=== PATIENT | male | born 1965 ===

== ENCOUNTER 2016-05-23 15:12 | Emergency (ER) | payer OTHER ==
[2016-05-23 15:41] LABS: BASOPHIL# 0.1 X 10^3uL (0.0-0.1); BASOPHILS 0.7 % (0.0-2.0); EOSINOPHILS 0.5 % (0.0-6.0); EOSINOPHILS# 0.1 X 10^3uL (0.0-0.4); LYMPHOCYTES 32.9 % (20.0-40.0); LYMPHOCYTES# 3.4 X 10^3uL (0.8-3.8); MEAN CORPUS. HGB CONCENTRATION 35.8 g/dL (32.0-36.0); MEAN CORPUSCULAR HEMOGLOBIN 30.8 pg (29.0-35.0); MEAN PLATELET VOLUME 6.5 fL (7.4-10.4); MONOCYTES 7.4 % (2.0-10.0); MONOCYTES# 0.8 X 10^3uL (0.2-1.0); NEUTROPHILS 58.5 % (54.0-75.0); PLATELET COUNT 303 X 10^3uL (130-440); RED BLOOD COUNT 5.38 X 10^6uL (4.20-6.10); RED CELL DISTRIBUTION WIDTH 12.6 % (11.5-14.5); WHITE BLOOD COUNT 10.4 X 10^3uL (3.9-10.7)
--- NOTE | 2016-05-23 15:53 | RADIOLOGY REPORT ---
HISTORY: Shortness of breath. COMPARISON: None. TECHNIQUE: AP portable upright chest radiograph. FINDINGS: The lungs are clear. Cardiac silhouette is normal in size. Pulmonary vasculature is within normal limits. There are no pleural effusions. IMPRESSION: No acute cardiopulmonary disease. Final Electronic Signature: This report was electronically signed by Quirino Gautam MD, FACR on 05/23/2016 3:51 PM. carlos /
[2016-05-23 15:54] LABS: BLOOD UREA NITROGEN 18 mg/dL (9-20); CHLORIDE 101 mmol/L (98-107); CREATININE 1.2 mg/dL (0.7-1.3); EST GLOMERULAR FILTRATION RATE > 60 mL/min; GLUCOSE 119 mg/dL (70-100); MAGNESIUM 1.8 mg/dL (1.6-2.3); SODIUM 135 mmol/L (137-145)
[2016-05-23 15:55] LABS: HEMATOCRIT 47.9 % (42.0-54.0); HEMOGLOBIN 15.6 g/dL (14.0-18.0)
[2016-05-23 16:06] LABS: TROPONIN I < 0.012 ng/mL (0.00-0.034)
[2016-05-23] MEDS ORDERED: DILTIAZEM HCL 125 MG/25 ML VIAL IV ONE (16:12)
--- NOTE | 2016-05-23 18:14 | ER NURSING DOCUMENTATION ---
Nurse's Notes [facility] Name:Luis Walker Age:50 yrs Sex:Male :1965 Arrival Date:05/23/2016 Time:15:12 BedTrauma-C Private MD: Diagnosis:Atrial Fibrillation with Rapid Ventricular Response Presentation: 05/23 15:16 Acuity: JAM 2 rh 15:27 Presenting complaint: Patient states: PT felt like his heart was beating irregularly. rh No other associated sx. Transition of care: [place]. 15:27 Method Of Arrival: Other Triage Assessment: 15:28 General: Appears in no apparent distress, Behavior is cooperative. Pain: Denies pain. rh EENT: Oral mucosa is moist. Neuro: Level of Consciousness is awake, alert, obeys commands. Cardiovascular: Capillary refill < 3 seconds Reports palpitations, Denies lightheadedness, Rhythm is atrial fibrillation Chest pain is denied. Respiratory: Airway is patent Respiratory effort is even, unlabored. GI: Denies nausea. : No deficits noted. Derm: Skin is intact, is healthy with good turgor, Skin is pink, warm & dry. Historical: - Allergies: No known drug Allergies; - Home Meds: 1. trazodone Oral 2. gabapentin oral - PMHx: ALCOHOLISM; - PSHx: None; - Tetanus: < 10 years. - Ebola Screening: : Patient negative for fever greater than or equal to 101.5 degrees Fahrenheit, and additional compatible Ebola Virus Disease symptoms. - Immunization history: Flu Vaccine None. - Social history: Smoking status: Patient states was never smoker of tobacco. Patient uses alcohol patient/guardian reports chronic longstanding heavy alcohol consumption. patient/guardian reports recent binge of alcohol consumption. Screenin:50 Infectious Disease Risk None. Abuse screen: Denies threats or abuse. Denies injuries rh from another. Nutritional screening: No deficits noted. Assessment: 15:48 See Triage Assessment done by same RN. rh Vital Signs: 15:20 BP 112 / 81; Pulse 145; Resp 17; Temp 97.9; Pulse Ox 93% on R/A; Weight 92.99 kg; rh Height 6 ft. 0 in. (182.88 cm); Pain 0/10; 15:46 BP 99 / 70; Pulse 120; Resp 17; Pulse Ox 93% on R/A; Pain 0/10; rh 16:12 BP 104 / 71; Pulse 122; Resp 17; Pulse Ox 92% on R/A; rh 16:40 BP 107 / 75; Pulse 109; Resp 16; Pulse Ox 96% on 1 lpm NC; rh 17:27 BP 101 / 76; Pulse 115; Resp 14; Pulse Ox 96% on 1 lpm NC; rh 18:05 BP 112 / 76; Pulse 101; Resp 16; Pulse Ox 92% on R/A; rh 15:20 Body Mass Index 27.80 (92.99 kg, 182.88 cm) rh ED Course: 15:13 Patient arrived in ED. lm3 15:15 Valuables Remains with patient Patient has correct armband on for positive rh identification. Placed in gown. Bed in low position. Call light in reach. Side rails up X 1. senior scientist on. Pulse ox on. NIBP on. 15:16 Beatriz Figueroa is Primary Nurse. rh 15:16 Triage completed. rh 15:18 Notified ED Physician of patient's arrival and chief complaint. Dr. Bowen notified. rh 15:21 EKG done. (by ED staff). Reviewed by Johnny Bowen MD. rh 15:28 Johnny Bowen MD is Attending Physician. 15:32 Inserted peripheral IV: 20 gauge in left antecubital area and blood collected. st 15:45 EKG attached rh 15:46 Port Xray Completed. melida 16:10 Oxygen Oxygen administration via nasal cannula @ 1L/min. rh 17:55 Duke Santoro MD is Referral Physician. Administered Medications: 15:38 Drug: Aspirin Chewable Tablet 324 mg; Route: PO; rh 15:47 Follow up: Response: No adverse reaction rh 15:38 Drug: NS 0.9% 1000 ml; Route: IV; Rate: bolus; Site: left antecubital; rh 16:18 Follow up: IV Status: Completed infusion; IV Intake: 1000ml rh 15:39 Drug: Metoprolol 5 mg; {Note: Held for SBP <100.} Route: IVP; Site: left antecubital; rh 15:47 Follow up: Response: No adverse reaction rh 16:05 Drug: Diltiazem 5 mg; Route: IVP; Infused Over: 5 mins; Site: left antecubital; rh 16:24 Follow up: Response: No adverse reaction 16:18 Drug: NS 0.9% 1000 ml; Route: IV; Rate: bolus; Site: left antecubital; 17:00 Follow up: IV Status: Completed infusion; IV Intake: 1000ml rh 16:27 Drug: Metoprolol 25 mg; Route: PO; 18:09 Follow up: Response: No adverse reaction rh 16:50 Drug: Diltiazem 5 mg; {Note: ADMINISTERED BY SHAYNA CORREIA.} Route: IVP; Infused Over: 2 rh mins; Site: left antecubital; 18:09 Follow up: Response: No adverse reaction rh Intake: 16:18 IV: 1000ml; Total: 1000ml. 17:00 IV: 1000ml; Total: 2000ml. Outcome: 17:55 Discharge ordered by MD. bahena 18:05 Discharged to [facility] 18:05 Condition: improved 18:05 Discharge Assessment: Patient awake, alert and oriented x 3. No cognitive and/or functional deficits noted. Patient verbalized understanding of disposition instructions. 18:05 Discharge instructions given to patient, [place] NURSE Instructed on discharge instructions, follow up and referral plans. medication usage, Demonstrated understanding of instructions, medications, Prescriptions given X 1. 18:05 IV D/Goran 18:13 Patient left the ED. Signatures: Shayna Carroll, Johnny Palmer RN, MD MD jm Abbott, Beatriz Chavez Dilcia Powers
--- NOTE | 2016-05-23 18:14 | ER PHYSICIAN DOCUMENTATION ---
Physician Documentation [facility] Name:Luis Walker Age:50 yrs Sex:Male :1965 Arrival Date:05/23/2016 Time:15:12 BedTrauma-C Private MD: Johnny Blank Disposition: 05/23/16 17:55 Discharged to Home/Self Care. Impression: Atrial Fibrillation with Rapid Ventricular Response. - Condition is Good. - Discharge Instructions: ATRIAL FIBRILLATION. - Prescriptions for Metoprolol Tartrate 25 mg Oral - take 1 tablet by ORAL route 2 times per day with a meal; 30 tablet. - Medical Reconciliation form form. - Follow up: Duke Santoro MD; When: thursday or for follow up. ; Reason: Recheck today's complaints. - Problem is new. - Symptoms have improved. HPI: 05/23 16:25 This 50 yrs old Unknown Male presents to ER via Other with complaints of Shortness Of jm Breath. 16:26 The patient presents with a history of irregular heart beat, heart racing. Context: The jm symptoms occur at rest. Onset: The symptom(s)/episode began/occurred today. Duration: The patient or guardian reports a single episode, that is still ongoing. Modifying factors: The symptoms are aggravated by nothing. The symptoms are alleviated by nothing. Associated signs and symptoms: Pertinent negatives: chest pain, SOB. Severity of symptoms: in the emergency department the symptoms are unchanged. The patient has experienced a previous episode. The patient has not recently seen a physician. 50 yo M w only PMH of ETOHism, who checked into [facility] yesterday for rehab here for irregular HR that was noted while taking VS. Pt has no other sx, except for being able to feel his HR racing. . Historical: - Allergies: No known drug Allergies; - Home Meds: 1. trazodone Oral 2. gabapentin oral - PMHx: ALCOHOLISM; - PSHx: None; - Tetanus: < 10 years. - Ebola Screening: : Patient negative for fever greater than or equal to 101.5 degrees Fahrenheit, and additional compatible Ebola Virus Disease symptoms. - Immunization history: Flu Vaccine None. - Social history: Smoking status: Patient states was never smoker of tobacco. Patient uses alcohol patient/guardian reports chronic longstanding heavy alcohol consumption. patient/guardian reports recent binge of alcohol consumption. ROS: 16:28 Constitutional: Negative for chills, fatigue, fever, malaise. 16:28 Cardiovascular: Positive for palpitations. 16:28 Abdomen/GI: Negative for nausea, vomiting. 16:28 MS/extremity: Negative for tenderness. 16:28 Psych: Positive for alcohol dependence, Negative for drug dependence. 16:28 All other systems are negative. Exam: 16:29 Constitutional: The patient appears alert, awake, comfortable. 16:29 Eyes: Periorbital structures: appear normal, Conjunctiva: normal. 16:29 ENT: Nose: is normal, Mouth: is normal. 16:29 Cardiovascular: Rate: tachycardic, Rhythm: irregularly irregular, Pulses: no pulse deficits are appreciated. 16:29 Respiratory: Respirations: normal, Breath sounds: are normal. 16:29 Abdomen/GI: Bowel sounds: normal, Palpation: abdomen is soft and non-tender. 16:29 Musculoskeletal/extremity: DVT Exam: No signs of deep vein thrombosis. Calves: are non-tender, have equal circumference. 16:29 Skin: Appearance: Color: pink, no rash present. 16:29 Neuro: Mentation: is normal, Memory: is normal. 16:29 Psych: Behavior/mood is pleasant, Affect is calm. Vital Signs: 15:20 BP 112 / 81; Pulse 145; Resp 17; Temp 97.9; Pulse Ox 93% on R/A; Weight 92.99 kg; rh Height 6 ft. 0 in. (182.88 cm); Pain 0/10; 15:46 BP 99 / 70; Pulse 120; Resp 17; Pulse Ox 93% on R/A; Pain 0/10; rh 16:12 BP 104 / 71; Pulse 122; Resp 17; Pulse Ox 92% on R/A; rh 16:40 BP 107 / 75; Pulse 109; Resp 16; Pulse Ox 96% on 1 lpm NC; rh 17:27 BP 101 / 76; Pulse 115; Resp 14; Pulse Ox 96% on 1 lpm NC; rh 18:05 BP 112 / 76; Pulse 101; Resp 16; Pulse Ox 92% on R/A; rh 15:20 Body Mass Index 27.80 (92.99 kg, 182.88 cm) MDM: 15:15 Patient medically screened. 15:45 EKG attached rh 16:30 Differential diagnosis: arrythmia, stress disorder. Data reviewed: vital signs, nurses jm notes, lab test result(s), EKG, radiologic studies, and as a result, I will discharge patient. Counseling: I had a detailed discussion with the patient and/or guardian regarding: the historical points, exam findings, and any diagnostic results supporting the discharge/admit diagnosis, lab results, radiology results, the need for outpatient follow up, a monotype setter. Medication response: The patient's symptoms have improved, dilt and metoprolol. . ED course: Pt w Afib w/ RVR most likely 2/2 stress from alcoholism w recent quit. Pt denies any other sx. I wanted to given more dilt/lopresser, but his pressures dropped to 100. Pt denies dizziness. Pt given 2LNS to counteract this and will do oral Lopressor. Labs WNL. CXR normal. Pt sent back to [facility] and will get metoprolol BID and f/u w cards early next week. Pt told he needs to be on full dose ASA. This was also relayed to [facility]. . 05/23 15:56 Order name: CBC AUTO DIF, MDIF/RMOR IF IND; Complete Time: 16:21 [facility] 05/23 15:57 Order name: PROTIME/INR; Complete Time: 16:21 [facility] 05/23 16:07 Order name: BASIC METABOLIC PANEL; Complete Time: 16:21 [facility] 05/23 16:07 Order name: MAGNESIUM; Complete Time: 16:21 [facility] 05/23 16:07 Order name: TROPONIN I; Complete Time: 16:21 [facility] 05/23 15:55 Order name: CHEST; [place] [id number]; Complete Time: 15:57 [facility] 05/23 15:29 Order name: 12-lead EKG; Complete Time: 15:30 05/23 15:29 Order name: Iv Saline Lock; Complete Time: 15:30 05/23 15:29 Order name: Place Patient On Monitor; Complete Time: 15:30 05/23 15:29 Order name: Pulse Ox Continuous; Complete Time: 15:30 05/23 16:18 Order name: Oxygen; Complete Time: 16:18 rh Dispensed Medications: 15:38 Drug: Aspirin Chewable Tablet 324 mg; Route: PO; rh 15:47 Follow up: Response: No adverse reaction rh 15:38 Drug: NS 0.9% 1000 ml; Route: IV; Rate: bolus; Site: left antecubital; rh 16:18 Follow up: IV Status: Completed infusion; IV Intake: 1000ml rh 15:39 Drug: Metoprolol 5 mg; {Note: Held for SBP <100.} Route: IVP; Site: left antecubital; rh 15:47 Follow up: Response: No adverse reaction rh 16:05 Drug: Diltiazem 5 mg; Route: IVP; Infused Over: 5 mins; Site: left antecubital; rh 16:24 Follow up: Response: No adverse reaction rh 16:18 Drug: NS 0.9% 1000 ml; Route: IV; Rate: bolus; Site: left antecubital; rh 17:00 Follow up: IV Status: Completed infusion; IV Intake: 1000ml rh 16:27 Drug: Metoprolol 25 mg; Route: PO; rh 18:09 Follow up: Response: No adverse reaction rh 16:50 Drug: Diltiazem 5 mg; {Note: ADMINISTERED BY SHAYNA CORREIA.} Route: IVP; Infused Over: 2 rh mins; Site: left antecubital; 18:09 Follow up: Response: No adverse reaction rh Signatures: Johnny Bowen MD MD jm Hofsess, Rachel rh
== END 2016-05-23 18:13 | disposition home or self-care (01) ==
LOC: ER 15:12
DX: I48.91 Unspecified atrial fibrillation (principal); R06.02 Shortness of breath; F10.20 Alcohol dependence, uncomplicated; I95.9 Hypotension, unspecified; T46.1X5A Adverse effect of calcium-channel blockers, initial encounter; Z79.899 Other long term (current) drug therapy
CPT/HCPCS: 71010; 80048; 83735; 84484; 85025; 85610; 93005; 96361; 96374; 96375; 96376; 99285